=== PATIENT | male | born 1970 | race African-American/Black ===

== ENCOUNTER → 2017-04-10 | Emergency (ER) | payer OTHER ==
[~2017-04-10] VITALS: Ht 177.8 cm; Wt 90.3 kg
[~2017-04-10] MED LIST: EDTA; FLEXERIL PO; METOFORMIN; NOHOMEMEDICATIONS; PREDNISONE50 MG PO; PROAIR HFA8.5 GM IH; VENTOLIN HFA 1818 GM INH; VICODIN 5-5001 EACH PO; ZPAK PO
[2017-04-10 11:05] VITALS: BP 154/90
== END ==
LOC: ER 09:59
DX: J45.901 Unspecified asthma with (acute) exacerbation (principal); E11.9 Type 2 diabetes mellitus without complications; F17.210 Nicotine dependence, cigarettes, uncomplicated; F10.99 Alcohol use, unspecified with unspecified alcohol-induced disorder